=== PATIENT | male | born 1980 | race Caucasian/White ===

== ENCOUNTER 2024-02-01 09:14 | Outpatient (AMB) | payer OTHER, SELFPAY ==
--- NOTE | 2024-02-01 09:47 | A.OFFPC_ITS ---
Vital Signs 02/01/24 09:49 Height 6 ft 4 in Weight 240 lb 4 oz BMI 29.2 BP 98/62 Blood Pressure Location Rt brachial Position Sitting Respiration 14 Pulse 70 Pulse Source Pulse Oximeter Pulse Oximetry (%) 95 Oxygen Delivery Method Room Air Intake Visit Reasons: est/posion apple on left arm/stomach Intake Note: patient complaining of rash on stomach and left forearm x 3 days. Allergies No Known Allergies Allergy (Verified 02/01/24 09:59) Medication List - Last Reconciled 02/01/[address] No Known Home Meds HPI HPI Comments History of Present Illness Details 43-year-old here today with chief compla ints an itchy rash that started on his left arm on Tuesday after doing yd work. Since the onset the rash has spread from his arm onto his stomach and today his right arm. He is having a lot of drainage. He is treating at home with topical cortisone and calamine also taking Benadryl without relief. He reports that this happened diffuse santillan ago after exposure to poison apple. The reaction he had at that time was much worse. Otherwise he denies constitutional symptoms. Exam Left forearm anterior aspect, left thorax, right forearm with contact dermatitis, left forearm with secondary excoriation and warmth suggestive of a secondary cellulitis. Some weeping of the rash, clear yellow liquid. Plan to treat with Augmentin for secondary cellulitis, Prednisone for the poison apple. Recommend daily antihistamine.Tecnu RTO edu provided. This note is constructed using voice recognition software. While every effort has been made to ensure accuracy in traverse rod assembler, still errors may have been included Sometimes, these errors may affect the content or meaning of the given sentence . Physical exam (Primary Care) Vital Signs: Last Vital Signs Pulse 70 02/01/24 09:49 Resp 14 02/01/24 09:49 BP 98/62 02/01/24 09:49 Pulse Ox 95 02/01/24 09:49 Oxygen Delivery Method Room Air 02/01/24 09:49 BMI result Body Mass Index 29.2 Assessment and Plan Assessment & Plan (1) Allergic dermatitis: Code(s): L23.9 - Allergic contact dermatitis, unspecified cause (2) Cellulitis of left arm: Code(s): L03.114 - Cellulitis of left upper limb Medications: New prednisone see taper instructions 60mg x 3 days, 50 mg x 3 days, 40 mg x 3 days, 30mg x 3 days, 20mg x 3 days, 10 mg x 3days then STOP 10 mg PO DIRECTED 53 tabs 0RF 18 days amoxicillin-pot clavulanate 875-125 mg 1 tab PO BID 14 tabs 0RF 7 days hydroxyzine HCl 25 mg PO TID PRN 30 tabs 0RF itching 10 days Patient Instructions: Advised to take the medication daily with food. If new lesions crop up while on the taper advised to return to the office as we may need to hold the taper and/or extend the taper to prevent recurrence. Advised to cover the areas to prevent spread using something like a Tegaderm. Wash linen to also help prevent spread. Continue to use the [id number] skin scrubs to help protect the rest of your skin. Do your best to avoid contact. Try OTC Tecnu to help dry it out. Coding Level of Care Code Est Pt Level 3 (38035) Diagnoses Allergic dermatitis L23.9 Cellulitis of left arm L03.114
[2024-02-01 09:49] VITALS: BP 98/62; PULSE 70; RESP 14; O2SAT 95; BMI 29.2
== END 2024-02-01 12:43 | disposition home or self-care (01) ==
PROVIDERS: Visit Provider Nurse Practitioner Family
DX: L23.9 Allergic contact dermatitis, unspecified cause (principal); L03.114 Cellulitis of left upper limb

== ENCOUNTER → 2024-02-01 09:14 | Outpatient (BNVA) | payer OTHER, SELFPAY | DX: L23.9 Allergic contact dermatitis, unspecified cause (principal); L03.114 Cellulitis of left upper limb | CPT/HCPCS: 99212 ==